=== PATIENT | female | born 2000 | race Hispanic/Latino ===

== ENCOUNTER 2023-05-16 21:57 | Inpatient (IN) | payer MEDICAID, OTHER, SELFPAY ==
[2023-05-16 22:20] VITALS: BMI 23.8
[2023-05-16] MEDS ORDERED: Oxytocin 30 units/NS 500 ML 500 ML ONE (22:45)
[2023-05-16] MEDS ORDERED: Lidocaine 1% (PF) 30 ML VIAL SC PRN (23:00)
[2023-05-16] MEDS ORDERED: Acetaminophen 500 MG TAB PO PRN (23:00)
[2023-05-16] MEDS ORDERED: Promethazine HCl 25 MG/ML VIAL IM PRN (23:00)
[2023-05-16] MEDS ORDERED: Ibuprofen 800 MG TAB PO PRN (23:00)
[2023-05-16] MEDS ORDERED: Butorphanol Tartrate 1 MG/ML VIAL SLOW IVP PRN (23:00)
[2023-05-16] MEDS ORDERED: Oxytocin 30 units/NS 500 ML 500 ML IV SCH (23:00)
[2023-05-16] MEDS ORDERED: hydrALAZINE 20 MG/ML VIAL SLOW IVP PRN (23:00)
[2023-05-16] MEDS ORDERED: Ondansetron PF 4 MG/2 ML Vial IVP PRN (23:00)
[2023-05-16 23:15] LABS: Hematocrit 32.4 % (34.9-44.5); Mean Corpuscular Volume 85.5 fl (81.6-98.3); Mean Platelet Volume 11.5 fl (7.4-10.4); Platelet Count 182 10x3/uL (150-450); RBC Distribution Width 13.1 % (11.5-14.5); Red Blood Cell (RBC) Count 3.79 10x6/uL (3.90-5.03); White Blood Cell (WBC) Count 5.9 10x3/uL (3.5-10.5)
[2023-05-16] MEDS ORDERED: Lactated Ringer's 1,000 ML IV SCH (23:15)
[2023-05-16 23:59] LABS: Syphilis Antibody Nonreactive (Nonreactive); Syphilis Antibody Index 0.03 S/CO (<1.00 Non-Reactive)
[2023-05-17 00:03] LABS: HBSAg Index 0.11 S/CO (0-0.99); Hep B Surf Ag - L&D Non-Reactive S/CO (NonReactive)
[2023-05-17] MEDS ORDERED: Milk Of Magnesia 30 ML UDCUP PO PRN (04:05)
[2023-05-17] MEDS ORDERED: Ondansetron PF 4 MG/2 ML Vial IVP PRN (04:05)
[2023-05-17] MEDS ORDERED: Methylergonovine 0.2 MG/ML VIAL IM PRN (04:05)
[2023-05-17] MEDS ORDERED: Preparation H Ointment 28 GM TUBE PR PRN (04:05)
[2023-05-17] MEDS ORDERED: Oxytocin 30 units/NS 500 ML 500 ML IV SCH (04:05)
[2023-05-17] MEDS ORDERED: Misoprostol 200 MCG TAB VAG PRN (04:05)
[2023-05-17] MEDS ORDERED: Benzocaine-Menthol 82.5 ML CAN TOP PRN (04:05)
[2023-05-17] MEDS ORDERED: hydrALAZINE 20 MG/ML VIAL SLOW IVP PRN (04:05)
[2023-05-17] MEDS ORDERED: Bisacodyl 10 MG SUPP PR PRN (04:05)
[2023-05-17] MEDS ORDERED: Promethazine HCl 25 MG/ML VIAL IM PRN (04:05)
[2023-05-17] MEDS ORDERED: Boostrix 0.5 ML (Tdap) VIAL (>/=7 yrs of age) IM ONE (04:05)
[2023-05-17] MEDS ORDERED: Lanolin Ointment 7 GM TUBE TOP PRN (04:05)
[2023-05-17] MEDS: Ibuprofen 800 MG TAB PO SCH ×2 (04:54→14:58)
[2023-05-17] MEDS: Acetaminophen 500 MG TAB PO SCH ×3 (04:54→19:18)
[2023-05-17] MEDS: Ferrous Sulfate 325 MG TAB PO SCH ×2 (08:00→19:17)
[2023-05-17] MEDS: Docusate 100 MG CAP PO SCH (08:01)
[2023-05-17] MEDS: Prenatal Vitamin 1 TAB PO SCH (08:01)
[2023-05-18] MEDS: Ibuprofen 800 MG TAB PO SCH (01:18)
[2023-05-18] MEDS: Docusate 100 MG CAP PO SCH ×2 (01:18→11:36)
[2023-05-18 05:22] LABS: #Eosinphils 0.1 10x3/uL (0.0-0.5); #Monocytes 0.6 10x3/uL (0.0-1.1); #Neutrophils 6.3 10x3/uL (1.5-8.4); %Basophils 0.3 % (0.0-2.0); %Lymphocytes 20.5 % (18.0-47.0); %Monocytes 6.5 % (0.0-10.0); %Neutrophils 71.3 % (40.0-75.0); Hematocrit 27.5 % (34.9-44.5); Hemoglobin 9.3 g/dL (12.0-15.5); Mean Corpuscular HGB CONC 33.8 g/dL (32.0-36.0); Mean Corpuscular Hemoglobin 29.7 pg (27.0-33.0); Mean Corpuscular Volume 87.9 fl (81.6-98.3); Mean Platelet Volume 11.1 fl (7.4-10.4); Platelet Count 175 10x3/uL (150-450); RBC Distribution Width 13.4 % (11.5-14.5); Red Blood Cell (RBC) Count 3.13 10x6/uL (3.90-5.03); White Blood Cell (WBC) Count 8.9 10x3/uL (3.5-10.5)
[2023-05-18] MEDS: Ferrous Sulfate 325 MG TAB PO SCH (11:36)
[2023-05-18] MEDS: Prenatal Vitamin 1 TAB PO SCH (11:36)
[2023-05-18 19:16] VITALS: BP 111/58; TEMP 97.9
== END 2023-05-18 12:37 | disposition home or self-care (01) | DRG 807 ==
LOC: CSHLD/OP 21:57 → CSHLD 22:41 → CSHPP 05-17 05:14
PROVIDERS: ADMIT Student in an Organized Health Care Education/Training Program; ATTEND Student in an Organized Health Care Education/Training Program
PROC: 10E0XZZ Delivery of Products of Conception, External Approach (ICD-10-PCS; principal; 2023-05-17)
DX: O99.02 Anemia complicating childbirth (principal); Z37.0 Single live birth; D64.9 Anemia, unspecified; Z3A.38 38 weeks gestation of pregnancy
CPT/HCPCS: 36415; 85025; 85027; 86780; 86850; 86900; 86901; 87340; 99285; J2001; J2590